=== PATIENT | male | born 1990 | race Caucasian/White ===

== ENCOUNTER 2022-06-02 11:22 | Emergency (ER) | payer SELFPAY ==
[~2022-06-02] VITALS: Ht 175.3 cm; Wt 72.7 kg
[2022-06-02 12:10] VITALS: BP 145/80; TEMP 98.2
[2022-06-02 13:56] VITALS: PULSE 52
== END 2022-06-02 13:57 | disposition home or self-care (01) ==
LOC: COL.ER 11:22
DX: S50.02XA Contusion of left elbow, initial encounter (principal); F17.210 Nicotine dependence, cigarettes, uncomplicated; V29.9XXA Motorcycle rider (driver) (passenger) injured in unspecified traffic accident, initial encounter; Y93.55 Activity, bike riding; Z28.310 Unvaccinated for COVID-19